=== PATIENT | male | born 1945 | race Caucasian/White ===

== ENCOUNTER 2018-10-24 06:25 | Emergency (ER) | payer MEDICARE ==
[~2018-10-24] VITALS: Ht 167.6 cm; Wt 82.0 kg
[~2018-10-24 06:25] MED LIST: AMLODIPINE5 MG PO; ASPIRIN LOW DOS81 M2 PO; BETIMOL0.5 % OP; CASODEX50 MG PO; CITRACAL200 MG PO; CLOBETASOL0.051 EX; COMBIGAN0.2 MG/0.5 OU; CRESTOR20 MG PO; CRESTOR40 MG PO; DESOWEN0.055 EX; DULCOLAX SS100 MG PO; FIBER CHOICE1.5 GM PO; FISH OIL1200 M1 PO; FLOMAX0.4 M1 PO; GLUCOSAMINE1 TA1 PO; KLOR-CON 1010 ME1 PO; LASIX 40 MG40 MG/TAB PO; LOMOTIL2.5 MG PO; LOTRISONE TOP; MEDDOSEPAK PO; METOPROL TAR25 M1 PO; METOPROLOL SUCC50 MG PO; METOPROLOL TART50 MG PO; MULTI VIT PO; PERCOCET 10/31 COMBO PO; PLAVIX75 MG PO; PREDNISONE20 MG PO; XALATAN0.005 % OP; ZETIA10 MG PO
[2018-10-24 06:50] LABS: HEMATOCRIT 30.8 % (39.0-50.0); HEMOGLOBIN 10.4 g/dl (14.0-18.0); MEAN CELL VOLUME 93.6 fL CALC (80.0-100.0); MEAN CORPUSCULAR HGB 31.6 pG CALC (26.0-32.0); MEAN CORPUSCULAR HGB CONC 33.8 g/L CALC (32.0-36.0); NEUT# 2.64 thou/uL (1.82-7.42); RED BLOOD COUNT 3.29 mill/uL (4.70-6.10); RED CELL DISTRI WIDTH 13.6 % (11.5-15.5)
[2018-10-24 07:08] LABS: ALKALINE PHOSPHATASE 50 u/l (38-126); ANION GAP 13 (6-22 (CALC)); BILIRUBIN, TOTAL 0.6 mg/dL (0.0-1.4); BUN 30 mg/dL (8-23); BUN/CREATININE RATIO 42 (12-20 (CALC)); CARBON DIOXIDE 24 mmol/l (22-30); CHLORIDE 107 mmol/l (95-108); CREATININE 0.7 mg/dL (0.7-1.3); GFR > 60 ML/MIN (>=60 (CALC)); GFR FOR AFR.AMER. > 60 ML/MIN (>=60 (CALC)); POTASSIUM 4.8 mmol/l (3.5-5.1); SGOT/AST 41 u/l (19-48); SODIUM 139 mmol/l (137-146); TOTAL PROTEIN 7.3 g/dL (6.3-8.2)
[2018-10-24 07:20] LABS: MYOGLOBIN 131 ng/mL (0 - 121)
[2018-10-24] MEDS ORDERED: AMLODIPINE5 MG PO (08:02)
[2018-10-24] MEDS ORDERED: SERTRALINE50 MG PO (08:02)
[2018-10-24] MEDS ORDERED: CRESTOR40 MG PO (08:02)
[2018-10-24] MEDS ORDERED: CARVEDILOL6.25 MG PO (08:03)
[2018-10-24 08:50] VITALS: BP 172/83
== END 2018-10-24 08:50 | disposition short-term general hospital (02) ==
LOC: ED 06:25
PROVIDERS: Family Medicine
DX: I63.9 Cerebral infarction, unspecified (principal); R53.1 Weakness; M41.9 Scoliosis, unspecified; I10 Essential (primary) hypertension

== ENCOUNTER → 2019-01-09 | Outpatient (REF) | payer MEDICARE ==
[~2019-01-09] MED LIST changes: +CARVEDILOL6.25 MG PO; +SERTRALINE50 MG PO
[2019-01-09 09:05] LABS: HEMATOCRIT 31.1 % (39.0-50.0); HEMOGLOBIN 9.8 g/dl (14.0-18.0); IMMATURE GRANULOCYTES 0.2 % (0.0-5.0); MEAN CELL VOLUME 93.4 fL CALC (80.0-100.0); MEAN CORPUSCULAR HGB 29.4 pG CALC (26.0-32.0); MEAN CORPUSCULAR HGB CONC 31.5 g/L CALC (32.0-36.0); NEUT# 2.58 thou/uL (1.82-7.42); RED BLOOD COUNT 3.33 mill/uL (4.70-6.10); RED CELL DISTRI WIDTH 15.5 % (11.5-15.5)
[2019-01-09 09:19] LABS: ALBUMIN 4.1 g/dL (3.2-5.0); ALKALINE PHOSPHATASE 72 u/l (38-126); ANION GAP 15 (6-22 (CALC)); BILIRUBIN, TOTAL 0.4 mg/dL (0.0-1.4); BUN 30 mg/dL (8-23); BUN/CREATININE RATIO 31 (12-20 (CALC)); CALCULATED LDLCHOLESTEROL 102 mg/dL (62-129 (CALC)); CARBON DIOXIDE 25 mmol/l (22-30); CHLORIDE 105 mmol/l (95-108); CHOLESTEROL HDL RATIO 4.4 (<4.4 (CALC)); GFR > 60 ML/MIN (>=60 (CALC)); GFR FOR AFR.AMER. > 60 ML/MIN (>=60 (CALC)); HDL CHOLESTEROL 37 mg/dL (>=40); POTASSIUM 4.4 mmol/l (3.5-5.1); SGOT/AST 24 u/l (19-48); SODIUM 141 mmol/l (137-146); TOTAL CHOLESTEROL 163 mg/dl (0-199); TOTAL PROTEIN 7.4 g/dL (6.3-8.2); TOTAL TRIGLYCERIDES 122 mg/dl (30-149); VLDL CHOLESTROL 24 mg/dl (0-38 (CALC))
== END | disposition home or self-care (01) ==
LOC: LAB 08:15
PROVIDERS: ATTEND Internal Medicine Geriatric Medicine
DX: I10 Essential (primary) hypertension (principal); E78.00 Pure hypercholesterolemia, unspecified; Z85.46 Personal history of malignant neoplasm of prostate

== ENCOUNTER 2019-03-19 19:02 | Emergency (ER) | payer MEDICARE ==
[~2019-03-19] VITALS: Ht 167.6 cm; Wt 79.0 kg
[2019-03-19] MEDS ORDERED: AMOXICILLIN500 MG PO (21:19)
[2019-03-19 21:38] VITALS: BP 132/68
== END 2019-03-19 21:38 | disposition home or self-care (01) ==
LOC: ED 19:02
PROC: 0CQ0XZZ Repair Upper Lip, External Approach (ICD-10-PCS; principal; 2019-03-19)
DX: S01.511A Laceration without foreign body of lip, initial encounter (principal); S00.81XA Abrasion of other part of head, initial encounter; R22.0 Localized swelling, mass and lump, head; W01.198A Fall on same level from slipping, tripping and stumbling with subsequent striking against other object, initial encounter; Y92.009 Unspecified place in unspecified non-institutional (private) residence as the place of occurrence of the external cause

== ENCOUNTER 2020-12-25 08:12 | Emergency (ER) | payer MEDICARE ==
[~2020-12-25] VITALS: Ht 175.3 cm; Wt 90.1 kg
[~2020-12-25 08:12] MED LIST changes: +AMOXICILLIN500 MG PO
[2020-12-25] MEDS ORDERED: SPIRONOLACT25 MG PO (08:49)
[2020-12-25] MEDS ORDERED: PLAVIX75 MG PO (08:49)
[2020-12-25] MEDS ORDERED: ENTRESTO 24-261 TAB PO (08:50)
[2020-12-25] MEDS ORDERED: SINEMET 25/1001 TA2 PO (08:51)
[2020-12-25] MEDS ORDERED: EZETIMIBE10 MG PO (08:52)
[2020-12-25 09:08] LABS: HEMATOCRIT 32.4 % (39.0-50.0); HEMOGLOBIN 10.5 g/dl (14.0-18.0); IMMATURE GRANULOCYTES 0.2 % (0.0-5.0); MEAN CELL VOLUME 97.6 fL CALC (80.0-100.0); MEAN CORPUSCULAR HGB 31.6 pG CALC (26.0-32.0); MEAN CORPUSCULAR HGB CONC 32.4 g/dL CAL (32.0-36.0); NEUT# 3.52 thou/uL (1.82-7.42); RED BLOOD COUNT 3.32 mill/uL (4.70-6.10); RED CELL DISTRI WIDTH 13.4 % (11.5-15.5)
[2020-12-25 09:29] LABS: ALBUMIN 4.6 g/dL (3.2-5.0); ALKALINE PHOSPHATASE 67 u/l (38-126); ANION GAP 16 (6-22 (CALC)); BUN 30 mg/dL (8-23); BUN/CREATININE RATIO 27 (12-20 (CALC)); CARBON DIOXIDE 22 mmol/l (22-30); CHLORIDE 104 mmol/l (95-108); CREATININE 1.1 mg/dL (0.7-1.3); GFR > 60 ML/MIN (>=60 (CALC)); GFR FOR AFR.AMER. > 60 ML/MIN (>=60 (CALC)); LIPASE 67 u/l (23-300); POTASSIUM 4.3 mmol/l (3.5-5.1); SGOT/AST 26 u/l (19-48); SODIUM 138 mmol/l (137-146); TOTAL PROTEIN 7.8 g/dL (6.3-8.2)
[2020-12-25 09:32] LABS: BILIRUBIN, TOTAL 0.6 mg/dL (0.0-1.4)
[2020-12-25 10:44] LABS: URINE BILIRUBIN - DIPSTICK NEGATIVE (NEGATIVE); URINE BLOOD DIPSTICK NEGATIVE (NEGATIVE); URINE COLOR YELLOW; URINE GLUCOSE - DIPSTICK NEGATIVE (NEGATIVE); URINE KETONE NEGATIVE (NEGATIVE); URINE LEUK ESTERASE NEGATIVE (NEGATIVE); URINE NITRITE - DIPSTICK NEGATIVE (Negative); URINE PROTEIN - DIPSTICK NEGATIVE (NEG-TRACE); URINE SPECIFIC GRAVITY 1.025; URINE UROBILINOGEN - DIPSTICK 0.2 E.U./dL (0.2)
[2020-12-25 16:19] VITALS: BP 140/70
== END 2020-12-25 16:19 | disposition short-term general hospital (02) ==
LOC: ED 08:12
PROVIDERS: Emergency Medicine
DX: R10.30 Lower abdominal pain, unspecified (principal); K80.20 Calculus of gallbladder without cholecystitis without obstruction; I10 Essential (primary) hypertension; M41.9 Scoliosis, unspecified; Z95.1 Presence of aortocoronary bypass graft
CPT/HCPCS: Q9967

== ENCOUNTER 2021-04-03 17:58 | Observation (INO) | payer MEDICARE ==
[~2021-04-03] VITALS: Ht 170.2 cm; Wt 88.2 kg
[~2021-04-03 17:58] MED LIST changes: +ENTRESTO 24-261 TAB PO; +EZETIMIBE10 MG PO; +SINEMET 25/1001 TA2 PO; +SPIRONOLACT25 MG PO
--- NOTE | 2021-04-03 18:00 | NUR ---
TO ROOM VIA EMS
[2021-04-03] MEDS ORDERED: AMITRIPTYLIN25 MG PO (18:32)
--- NOTE | 2021-04-03 18:45 | NUR ---
RECEIVED REPORT FROM RN DAY SHIFT.
--- NOTE | 2021-04-03 19:02 | NUR ---
IN ROOM INTRODUCED SELF TO PT. NO C/O.
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
[2021-04-03 19:25] LABS: HEMATOCRIT 27.3 % (39.0-50.0); IMMATURE GRANULOCYTES 0.5 % (0.0-5.0); MEAN CELL VOLUME 99.6 fL CALC (80.0-100.0); MEAN CORPUSCULAR HGB CONC 31.1 g/dL CAL (32.0-36.0); NEUT# 4.91 thou/uL (1.82-7.42); RED BLOOD COUNT 2.74 mill/uL (4.70-6.10); RED CELL DISTRI WIDTH 13.3 % (11.5-15.5)
[2021-04-03 19:27] LABS: HEMOGLOBIN 8.5 g/dl (14.0-18.0)
[2021-04-03 19:28] LABS: URINE BILIRUBIN - DIPSTICK NEGATIVE (NEGATIVE); URINE BLOOD DIPSTICK NEGATIVE (NEGATIVE); URINE COLOR YELLOW; URINE GLUCOSE - DIPSTICK NEGATIVE (NEGATIVE); URINE KETONE NEGATIVE (NEGATIVE); URINE LEUK ESTERASE NEGATIVE (NEGATIVE); URINE PROTEIN - DIPSTICK NEGATIVE (NEG-TRACE); URINE UROBILINOGEN - DIPSTICK 0.2 E.U./dL (0.2)
[2021-04-03 19:30] LABS: URINE NITRITE - DIPSTICK NEGATIVE (Negative)
[2021-04-03 19:36] LABS: MAGNESIUM 2.2 mg/dL (1.6-2.3)
[2021-04-03 19:37] LABS: ALKALINE PHOSPHATASE 95 u/l (38-126); ANION GAP 12 (6-22 (CALC)); BILIRUBIN, TOTAL 0.4 mg/dL (0.0-1.4); BUN 39 mg/dL (8-23); BUN/CREATININE RATIO 33 (12-20 (CALC)); CARBON DIOXIDE 23 mmol/l (22-30); CHLORIDE 102 mmol/l (95-108); CREATININE 1.2 mg/dL (0.7-1.3); GFR 59 ML/MIN (>=60 (CALC)); GFR FOR AFR.AMER. > 60 ML/MIN (>=60 (CALC)); LIPASE 30 u/l (23-300); SODIUM 132 mmol/l (137-146); TOTAL PROTEIN 7.4 g/dL (6.3-8.2)
[2021-04-03 19:41] LABS: SGOT/AST 155 u/l (19-48)
--- NOTE | 2021-04-03 20:20 | NUR ---
PT. RESTING ON STRETCHER, NO C/O AT THIS TIME. V/S STABLE.
--- NOTE | 2021-04-03 21:03 | NUR ---
IN ROOM TO DISCUSS CLINICAL FINDINGS WITH PT. AND VERBALIZED UNDERSTANDING.
--- NOTE | 2021-04-03 21:50 | NUR ---
Admission Note Report Given to: DYLAN BARNES Transported by: Wheelchair X Stretcher Transported with: X Nurse Transporter X Patent IV O2 Budget Specialist Location: ICU X MS[facility]
--- NOTE | 2021-04-03 22:08 | NUR ---
PT. TAKEN TO MS FLOOR VIA STRETCHER, NO C/O AT THIS TIME.
--- NOTE | 2021-04-03 22:10 | NUR ---
PT RECEIVED FROM ED TO ROOM 261. ARRIVES VIA STRETCHER ACCOMPANIED BY RAFFI BARNES. PT TRANSFERED TO BED. GAIT UNSTEADY. PT DENIES PAIN AT THIS TIME. ORIENTED TO UNIT, ROOM, CALL RAY, LIGHTS, TV. ICE WATER PROVIDED. CALL RAY WITHIN REACH. AGREES TO CALL PRN.
[2021-04-03 22:15] VITALS: BP 125/83
--- NOTE | 2021-04-03 23:00 | NUR ---
PHYSICAL ASSESMENT COMPLETE. PT CURRENTLY DENIES PAIN OR DISCOMFORT. SCHEDULED MEDICATIONS AND PRN MEDICATION ADMINISTERED, SEE E-MAR. PT A&O TO SELF BUT HAS MOMENTS OF CONFUSION. PT DENIES [place] NEEDS AT THIS TIME. PLAN OF CARE REVIEWED, PT DENIES QUESTIONS. ITEMS WITHIN REACH, BED LOCKED IN LOW POSITION W/ BEDRAILS UP X2. BED ALARM ACTIVATED. CALL RAY WITHIN REACH, AGREES TO CALL PRN.
--- NOTE | 2021-04-04 | NUR ---
PT LAYING IN BED WITH EYES CLOSED, APPEARS TO BE SLEEPING, APPEARS COMFORTABLE AND IN NO DISTRESS. RESPIRATIONS REGULAR AND UNLABORED. ITEMS REMAIN WITHIN REACH, CALL RAY REMAINS WITHIN REACH. BED REMAINS LOCKED AND IN LOW POSITION WITH BEDRAILS UP X2. WILL CONTINUE TO MONITOR.
--- NOTE | 2021-04-04 03:50 | NUR ---
PT CHANGED AND CLEANED FOR INCONTIENCE OF STOOL AND URINE. NO SIGNS OF DISTRESS NOTED, RESP EVEN AND UNLABORED. PT VOICES NO NEEDS OR COMPLAINTS AT THIS TIME. CALL LIGHT IN REACH, CONTINUE TO MONITOR.
[2021-04-04 04:00] VITALS: BP 133/81
--- NOTE | 2021-04-04 07:00 | NUR ---
SHIFT CHANGE REPORT, PT AWAKE AND ALERT, ORIENTED TO PERSON AND PLACE, DENIES PAIN AT THIS TIME, CALL RAY IN REACH AND BED LOCKED IN LOWEST POSITION
[2021-04-04 07:34] VITALS: BP 126/79
--- NOTE | 2021-04-04 11:40 | NUR ---
SITTING UP IN BED, MEAL SERVED, ALL NEEDS ADDRESSED.
[2021-04-04 14:30] VITALS: BP 122/78
--- NOTE | 2021-04-04 15:57 | NUR ---
RESTING N BED, NO NEW COMPLAINS OR CHANGES, ALL NEEDS MET/ADDRESSED.
[2021-04-04 19:00] VITALS: BP 119/76
--- NOTE | 2021-04-04 20:04 | NUR ---
PATIENT RESTING IN BED AT THIS TIME WITH HOB ELEVATED. PATIENT IS AWAKE ALERT AND ORIENTEDX3. IV SITE TO RAC INTACT WITH IVF NS PATENT AND INFUSING AT 100CC/HR. SITE IS HEALTHY AT THIS TIME. PATIENT TURNED AND REPOSITIONED. MEDICATED WITH MOM 30CC FROR CONSTIPATION. ABD IS SOFT WITH ACTIVE BS. LUNGS ARE CLEAR. TRACE EDEMA NOTED TO BLE-C/O SOME PAIN TO RIGHT ANKLE AREA. BLE ELEVATED ON PILLOWS. HEART RATE IS REGULAR. HS MEDS WERE ALSO GIVEN. TAKING PO FLUIDS WITHOUT ANY DIFFICULTY. SAFETY PRECAUTIONS REINFORCED. BED ALARM IN PLACE FOR PATIENT SAFETY. CALL LIGHT IN REACH. WILL CONT TO MONITOR.
--- NOTE | 2021-04-04 23:35 | NUR ---
PATIENT RESTING IN BED WITH EYES CLOSED. RESPS ARE EVEN AND UNLABORED. IVF NS PATENT AND INFUSING VIA RAC SITE AT 100CC/HR. BED ALARM IN PL [place] FOR PATIENT SAFETY. CALL LIGHT IN REACH. WILL CONT TO MONITOR.
[2021-04-05 04:00] VITALS: BP 125/78
--- NOTE | 2021-04-05 04:04 | NUR ---
PATIENT APPEARS SLEEPING AT THIS TIME WITH HIS EYES CLOSED. RESPS ARE EVEN AND UNLABORED. BED ALARM INPLACE FOR PATIENT SAFETY. CALL LIGHT IN REACH. WILL CONT TO MONITOR.
--- NOTE | 2021-04-05 04:45 | NUR ---
PATIENT INCONT OF MODERATE AMT OF SOFT BROWN STOOL AND MODERATE AMT OF URINE, PERICARE WAS DONE WITH SOAP AND WATER. TURNED AND REPOSITIONED. CALL LIGHT IN REACH. WILL CONT TO MONITOR.
--- NOTE | 2021-04-05 05:12 | NUR ---
PATIENT RESTING IN BED. NEW IV STARTED TO LAC-GOOD BLOOD RETURN. IVF NS PATENT AND INFUSING AT 100CC/HR. EMS SITE TO [facility] D/C'ED WITH CATH INTACT. BED ALARM IN PLACE FOR PATIENT SAFETY. CALL LIGHT IN REACH. WILL CONT TO MONITOR.
[2021-04-05 06:07] LABS: HEMATOCRIT 25.7 % (39.0-50.0); HEMOGLOBIN 8.1 g/dl (14.0-18.0); MEAN CORPUSCULAR HGB 30.6 pG CALC (26.0-32.0); MEAN CORPUSCULAR HGB CONC 31.5 g/dL CAL (32.0-36.0); RED BLOOD COUNT 2.65 mill/uL (4.70-6.10); RED CELL DISTRI WIDTH 13.2 % (11.5-15.5)
[2021-04-05 06:26] LABS: ANION GAP 12 (6-22 (CALC)); BUN 23 mg/dL (8-23); BUN/CREATININE RATIO 24 (12-20 (CALC)); CARBON DIOXIDE 21 mmol/l (22-30); CHLORIDE 107 mmol/l (95-108); GFR > 60 ML/MIN (>=60 (CALC)); GFR FOR AFR.AMER. > 60 ML/MIN (>=60 (CALC)); POTASSIUM 4.8 mmol/l (3.5-5.1); SODIUM 135 mmol/l (137-146)
[2021-04-05 07:20] VITALS: BP 134/86
--- NOTE | 2021-04-05 08:10 | NUR ---
SHIFT CHANGE REPORT, PT SLEELPING SOUNDLY IN SUPINE POSITION, AWAKENED BY MODERATELY LOUD VERBAL STIMULI, NO C/O DISCOMFORT, IVF INFUSING, CALL RAY IN REACH AND BED LOCKED IN LOWEST POSITION.
--- NOTE | 2021-04-05 11:48 | NUR ---
RESTING IN BED, PHYSICAL THERAPIST WORKING WITH PT AT THIS TIME, ALL NEEDS ADDRESSED.
[2021-04-05] MEDS ORDERED: FERROUS SULF325 M2 PO (13:44)
[2021-04-05] MEDS ORDERED: MIRALAX17 GM/SCOO PO (13:48)
[2021-04-05 15:22] VITALS: BP 145/83
--- NOTE | 2021-04-05 15:30 | NUR ---
REPORT GIV[facility]IA PHONE TO [facility], PT EXPECTED TO LEAVE @ 1600.
--- NOTE | 2021-04-05 15:51 | NUR ---
Patient was seen and treated at bedside. Patient identity was verified via full name and . Patient denies fer and discomfort with all exercise activities. Patient was alert and oriented throughout PT visit. Patient tolerated supine AROMES on B UE/LE. Assisted in getting up to sit on edge of bed. Practiced trunk stabilization and weight shifting in sitting to facilitate sitting balance. Attempted sit to stand and scooting activities to adjust position on bed. Patient was unable to completely lift butt off the bed to stand upright, but able to scoot up towards head of bed. Patient tolerated upright sitting and AROMES on edge of bed for about 15 minutes. Patient education on pressur relief measures, proper bed positioning, fall prevention and HEP provided. Patient assisted back into bed, left comfortably in semi-guo position with call button at bedside.
--- NOTE | 2021-04-05 16:55 | NUR ---
Discharge instructions given. Patient verbalizes understanding of same. Discharged in stable condition via Medical Transport to [facility] with *Other. All belongings sent with pt.
== END 2021-04-05 16:15 ==
LOC: ED 17:58 → ED-I 21:20 → ED 21:31 → MS2 21:32
PROVIDERS: Nurse Practitioner; ADMIT Internal Medicine; ATTEND Internal Medicine
DX: K56.41 Fecal impaction (principal); E86.0 Dehydration; D50.9 Iron deficiency anemia, unspecified; I10 Essential (primary) hypertension; I25.10 Atherosclerotic heart disease of native coronary artery without angina pectoris; E78.5 Hyperlipidemia, unspecified; G20 Parkinson's disease; M41.9 Scoliosis, unspecified; Z95.1 Presence of aortocoronary bypass graft; Z20.822 Contact with and (suspected) exposure to COVID-19
CPT/HCPCS: G0378; J1756

== ENCOUNTER 2022-05-01 08:26 | Emergency (ER) | payer MEDICARE ==
[~2022-05-01] VITALS: Ht 170.2 cm; Wt 86.0 kg
[~2022-05-01 08:26] MED LIST changes: +AMITRIPTYLIN25 MG PO; +FERROUS SULF325 M2 PO; +MIRALAX17 GM/SCOO PO
[2022-05-01 09:17] LABS: URINE BILIRUBIN - DIPSTICK NEGATIVE (NEGATIVE); URINE BLOOD DIPSTICK NEGATIVE (NEGATIVE); URINE COLOR YELLOW; URINE GLUCOSE - DIPSTICK NEGATIVE (NEGATIVE); URINE KETONE NEGATIVE (NEGATIVE); URINE LEUK ESTERASE NEGATIVE (NEGATIVE); URINE PROTEIN - DIPSTICK NEGATIVE (NEG-TRACE); URINE SPECIFIC GRAVITY 1.015; URINE UROBILINOGEN - DIPSTICK 0.2 E.U./dL (0.2)
[2022-05-01 09:22] LABS: URINE NITRITE - DIPSTICK NEGATIVE (Negative)
[2022-05-01 09:23] LABS: ALKALINE PHOSPHATASE 70 u/l (38-126); AMYLASE 67 u/l (30-110); BILIRUBIN, TOTAL 0.4 mg/dL (0.0-1.4); BUN 40 mg/dL (8-23); BUN/CREATININE RATIO 30 (12-20 (CALC)); CHLORIDE 106 mmol/l (95-108); CREATININE 1.4 mg/dL (0.7-1.3); GFR FOR AFR.AMER. 59 ML/MIN (>=60 (CALC)); GFR OTHER RACES 49 ML/MIN (>=60 (CALC)); LIPASE 117 u/l (23-300); POTASSIUM 4.1 mmol/l (3.5-5.1); SODIUM 139 mmol/l (137-146)
[2022-05-01 09:25] LABS: ANION GAP 10 (6-22 (CALC)); CARBON DIOXIDE 27 mmol/l (22-30); HEMATOCRIT 30.1 % (39.0-50.0); HEMOGLOBIN 9.6 g/dl (14.0-18.0); MEAN CORPUSCULAR HGB 31.6 pG CALC (26.0-32.0); MEAN CORPUSCULAR HGB CONC 31.9 g/dL CAL (32.0-36.0); NEUT# 2.33 thou/uL (1.82-7.42); RED BLOOD COUNT 3.04 mill/uL (4.70-6.10); RED CELL DISTRI WIDTH 14.4 % (11.5-15.5); SGOT/AST 28 u/l (19-48)
[2022-05-01 09:30] LABS: ACT PARTIAL THROMBO TIME 23.6 SECONDS (20.0-32.5); PROTHROMBIN TIME 10.5 SECONDS (9.0-12.5)
[2022-05-01 12:12] VITALS: BP 146/87
== END 2022-05-01 12:01 | disposition short-term general hospital (02) ==
LOC: ED 08:26
DX: R10.31 Right lower quadrant pain (principal); R10.32 Left lower quadrant pain; I71.4 Abdominal aortic aneurysm, without rupture; I10 Essential (primary) hypertension; G20 Parkinson's disease; Z95.1 Presence of aortocoronary bypass graft; Z85.46 Personal history of malignant neoplasm of prostate; Z20.822 Contact with and (suspected) exposure to COVID-19
CPT/HCPCS: Q9967

== ENCOUNTER 2023-01-29 08:07 | Observation (INO) | payer MEDICARE ==
[2023-01-29] VITALS (14 sets, daily range): BP systolic 124–146; BP diastolic 67–89
[~2023-01-29] VITALS: Ht 175.3 cm; Wt 73.7 kg
--- NOTE | 2023-01-29 08:08 | NUR ---
PATIENT TO ROOM VIA EMS FOR A FALL IN THE SHOWER AT HOME. FALL WITNESSED BY . DENIES LOC OR INJURY TO HEAD. EMS NOTES PATIENT HAS NOT HAD A BOWEL MOVEMENT IN 4 DAYS.
[2023-01-29 08:27] LABS: BASO% 0.2 % (0-3); EOS% 2.6 % (0-8); HEMATOCRIT 28.7 % (39.0-50.0); HEMOGLOBIN 9.2 g/dl (14.0-18.0); LYMPH% 12.3 % (15-41); MEAN CORPUSCULAR HGB 32.1 pG CALC (26.0-32.0); MEAN CORPUSCULAR HGB CONC 32.1 g/dL CAL (32.0-36.0); MONO% 9.3 % (2-13); NEUT# 4.94 thou/uL (1.82-7.42); NEUT% 75.6 % (42-76); RED BLOOD COUNT 2.87 mill/uL (4.70-6.10); RED CELL DISTRI WIDTH 13.9 % (11.5-15.5)
[2023-01-29 08:48] LABS: ALBUMIN 4.2 g/dL (3.2-5.0); ALKALINE PHOSPHATASE 66 u/l (38-126); ANION GAP 13 (6-22 (CALC)); BILIRUBIN, TOTAL 0.4 mg/dL (0.2-1.3); BUN 38 mg/dL (8-23); BUN/CREATININE RATIO 34 (12-20 (CALC)); CARBON DIOXIDE 24 mmol/l (22-30); CHLORIDE 106 mmol/l (95-108); CREATININE 1.1 mg/dL (0.7-1.3); GFR FOR AFR.AMER. > 60 ML/MIN (>=60 (CALC)); GFR OTHER RACES > 60 ML/MIN (>=60 (CALC)); POTASSIUM 4.3 mmol/l (3.5-5.1); SGOT/AST 32 u/l (19-48); SODIUM 139 mmol/l (137-146); TOTAL PROTEIN 7.5 g/dL (6.3-8.2)
--- NOTE | 2023-01-29 09:18 | NUR ---
pt straight cath done, urine sent to lab
--- NOTE | 2023-01-29 09:23 | NUR ---
pt sleeping, no distress, at bedside
[2023-01-29 09:46] LABS: URINE BILIRUBIN - DIPSTICK NEGATIVE (NEGATIVE); URINE BLOOD DIPSTICK NEGATIVE (NEGATIVE); URINE COLOR YELLOW; URINE GLUCOSE - DIPSTICK NEGATIVE (NEGATIVE); URINE KETONE NEGATIVE (NEGATIVE); URINE LEUK ESTERASE NEGATIVE (NEGATIVE); URINE PROTEIN - DIPSTICK NEGATIVE (NEG-TRACE); URINE SPECIFIC GRAVITY 1.015; URINE UROBILINOGEN - DIPSTICK 0.2 E.U./dL (0.2)
[2023-01-29 09:47] LABS: URINE NITRITE - DIPSTICK NEGATIVE (Negative)
--- NOTE | 2023-01-29 10:38 | NUR ---
pt sleeping, at bedside, pending admit
--- NOTE | 2023-01-29 12:33 | NUR ---
pt resting, no distress, at bedside. unable to verify home meds at this time, can bring med list
--- NOTE | 2023-01-29 12:58 | NUR ---
report called to [facility] nurse, all questions anwsered at this time
--- NOTE | 2023-01-29 13:35 | NUR ---
RECEIVE PATIENT FROM ER. REPORT FROM [facility] ER NURSE. PATIENT ACCOMPANIED FOR MRS. MATA . PATIENT STABLE AT THIS TIME.PATIENT AND IS EDUCATED ABOUD ADMISSION, NURSING PLAN AND MEDICATIONS FOR TODAY. PATIENT REFER UNDERSTAND. SAFETY AND FALL PRECAUTIONS IN PLACE. CALL LIGHT WITHIN IN REACH.
--- NOTE | 2023-01-29 13:43 | NUR ---
pt transported to 260
[2023-01-29] MEDS ORDERED: SINEQUAN25 MG PO (13:58)
[2023-01-29] MEDS ORDERED: BRIMONIDINE0.15 % OU (14:06)
[2023-01-29] MEDS ORDERED: LIPITOR80 M1 PO (14:09)
[2023-01-29] MEDS ORDERED: CARB/LEVO SR PO (16:01)
[2023-01-29] MEDS ORDERED: CARB/LEVO1 TA3 PO (16:01)
[2023-01-29] MEDS ORDERED: FUROSEMIDE20 MG PO (16:02)
[2023-01-29] MEDS ORDERED: ENTRESTO 24-261 TAB PO (16:04)
--- NOTE | 2023-01-29 20:00 | NUR ---
RECEIVED REPORT FROM NURSE YOSHIPATIENT RESTING IN BED, ALERT ORIENTED, EMS IV RAC SALINE LOCK PATENT FLUSHES WELL, ON TELEMETRY, PATIENT ON BED ALARM, REMAINS ON ISOLATION FOR FLU, CALL LIGHT IN REACH.
[2023-01-30] VITALS (7 sets, daily range): BP systolic 112–139; BP diastolic 68–80
--- NOTE | 2023-01-30 | NUR ---
PATIENT RESTING IN BED, REMAINS ON CPAP, NOT IN DISTRESS, TECH IN ROOM FOR LABS, CALL LIGHT IN REACH.
--- NOTE | 2023-01-30 | NUR ---
INCONTINENT CARE PROVIDED, PATIENT RESTING EYES CLSOED, CALL LIGHT IN REACH BED ALARM IN PLACE.
--- NOTE | 2023-01-30 05:00 | NUR ---
PATIENT RESTING IN BED EYES CLOSED, NON IN DISTRESS CALL LIGHTIN REACH, BED ALARM IN PLACE
--- NOTE | 2023-01-30 08:00 | NUR ---
PT ALERT AND ORIENTED X3.ABLE TO MAKE NEEDS KNOWN.EYES OPEN RESPIRATIONS EVEN,UNLABORED.SAFETY PREACAUTIONS IN PLACE CALL LIGHT WITHIN REACH.
--- NOTE | 2023-01-30 16:41 | NUR ---
PT RESTING WITH EYES OPEN.RESPIRATIONS EVEN,UNLABORED.NO C/O PAIN AT THIS TIME.ABLE TO MAKE NEEDS KNOWN.SAFETY PRECAUTIONS IN PLACE.CALL LIGHT WITHIN REACH.
--- NOTE | 2023-01-30 20:00 | NUR ---
RECEIVED REPORT FROM NURSE VAZQUEZ, PATIENT RESTING IN BED, BREATHING EVEN UNLABORED, PATIENT HAS OCCASIONAL COUGHING NOTED, NO PRODUCTIVE, REMAINS ON DROPLET PRECAUTION FOR FLU, PATIENT ALERT ORIENTED, HAS EMS SITE ON RAC G 20 PATENT FLUSHES WELLM ON TELEMETRY, ACTIVE BOWEL SOUNDS, EDEMA NOTED ON BOTH LEGS OFFLOADED, PATIENT C/O PAIN ON BUTT, PATIENT RESPOSITIONED AND TYLENOL GIVEN.CALL LIGHT IN REACH, BED ALRM INPLACE.
--- NOTE | 2023-01-30 22:05 | NUR ---
EMS SITE REMOVED NEW IV SITE REINSERTED ON RFA G 22, PATENT FLUSHES WELL.
--- NOTE | 2023-01-30 23:32 | NUR ---
PATIENT RESTING IN BED, WITH EYES CLOSED, BREATHING EVEN UNLABORED BED ALARM IN PLACE.
--- NOTE | 2023-01-30 23:58 | NUR ---
INCONTINENT OF BLADDER BM LOOSE SMALL BROWN IN COLOR, PERICARE PROVIDED.
[2023-01-31 03:55] VITALS: BP 134/76
--- NOTE | 2023-01-31 04:05 | NUR ---
incontinent care provided, bm x 1 loose, sierra care provided, patient turned to his rt side, call light in reach.
[2023-01-31 05:49] LABS: BASO% 0.3 % (0-3); EOS% 2.5 % (0-8); HEMATOCRIT 26.9 % (39.0-50.0); HEMOGLOBIN 8.6 g/dl (14.0-18.0); LYMPH% 35.2 % (15-41); MONO% 12.1 % (2-13); NEUT# 1.57 thou/uL (1.82-7.42); NEUT% 49.9 % (42-76); RED BLOOD COUNT 2.69 mill/uL (4.70-6.10); RED CELL DISTRI WIDTH 13.7 % (11.5-15.5)
[2023-01-31 05:58] LABS: ALBUMIN 3.6 g/dL (3.2-5.0); ALKALINE PHOSPHATASE 54 u/l (38-126); BUN 25 mg/dL (8-23); BUN/CREATININE RATIO 24 (12-20 (CALC)); CARBON DIOXIDE 24 mmol/l (22-30); CHLORIDE 109 mmol/l (95-108); CREATININE 1.1 mg/dL (0.7-1.3); GFR FOR AFR.AMER. > 60 ML/MIN (>=60 (CALC)); GFR OTHER RACES > 60 ML/MIN (>=60 (CALC)); MAGNESIUM 2.1 mg/dL (1.6-2.3); SGOT/AST 25 u/l (19-48); SODIUM 139 mmol/l (137-146); TOTAL PROTEIN 6.7 g/dL (6.3-8.2)
[2023-01-31 06:00] LABS: ANION GAP 10 (6-22 (CALC)); POTASSIUM 4.4 mmol/l (3.5-5.1)
[2023-01-31 06:05] LABS: BILIRUBIN, TOTAL 0.2 mg/dL (0.2-1.3)
[2023-01-31 06:41] VITALS: BP 137/80
--- NOTE | 2023-01-31 08:57 | NUR ---
PT ALERT AND ORIENTED X3.ABLE TO MAKE NEEDS KNOWN.NO C/O PAIN AT THIS TIME.PT TRANSFERRED TO RECLINER WITHOUT INCIDENT.PT IV 22G RFA INFUSING AZITHROMYCIN.PT RESTING IN RECLINCER RESPIRATIONS EVEN,UNLABORED.PHARMACY PENDING HOLDING TAMIFLU BECAUSE KIDNEY FUNCTION,AWAITNG DECISION FROM MD.SAFETY PRECAUTIONS IN PLACE.CALL LIGHT WITHIN REACH.
[2023-01-31 11:23] VITALS: BP 116/74
--- NOTE | 2023-01-31 12:00 | NUR ---
PT RESTING IN RECLINER WITH EYES OPEN.RESPIRATIONS EVEN,UNLABORED.ABLE TO MAKE NEEDS KNOWN.NO C/O PAIN AT THIS TIME. AND SON VISITING WITH PT AT THIS TIME.SAFETY PRECAUTIONS IN PLACE.CALL LIGHT WITHIN REACH.
[2023-01-31 15:09] VITALS: BP 113/67
--- NOTE | 2023-01-31 16:00 | NUR ---
PT RESTING IN RECLINER.ABLE TO MAKE NEEDS KNOWN.NO C/O PAIN AT THIS TIME.SAFETY PRECAUTIONS IN PLACE.CALL LIGHT WITHIN REACH.
[2023-01-31 18:56] VITALS: BP 115/66
--- NOTE | 2023-01-31 19:28 | NUR ---
PATIENT RESTING IN RECLINER IN ROOM. ALERT AND ABLE TO MAKE NEEDS KNOWN. ASSESSMENT COMPLETE. DENIES ANY PAIN. NO DISTRESS NOTED. RECLINER WHEELS LOCKED. CALL RAY IN REACH WELL BELONGINGS.
[2023-01-31 23:54] VITALS: BP 118/67
--- NOTE | 2023-02-01 00:45 | NUR ---
PATIENT RESTING IN BED. NO COMPLAINTS VOICED AT THIS TIME. BED REMAINS IN LOW POSITION. CALL RAY IN REACH.
--- NOTE | 2023-02-01 03:40 | NUR ---
PATIENT SITTING IN RECLINER PER REQUEST. CHAIR ALARM PRESENT DUE TO PATIENT TRYING TO STAND ON HIS OWN WITHOUT ASKING FOR HELP. NO COMPLAINTS OF PAIN. NO DISTRESS NOTED.
[2023-02-01 04:19] VITALS: BP 137/64
[2023-02-01 05:30] LABS: BASO% 0.5 % (0-3); EOS% 4.5 % (0-8); HEMATOCRIT 29.7 % (39.0-50.0); HEMOGLOBIN 9.5 g/dl (14.0-18.0); LYMPH% 25.1 % (15-41); MEAN CELL VOLUME 100.3 fL CALC (80.0-100.0); MEAN CORPUSCULAR HGB 32.1 pG CALC (26.0-32.0); MONO% 14.5 % (2-13); NEUT# 2.45 thou/uL (1.82-7.42); NEUT% 55.4 % (42-76); RED BLOOD COUNT 2.96 mill/uL (4.70-6.10); RED CELL DISTRI WIDTH 13.9 % (11.5-15.5)
[2023-02-01 05:40] LABS: ALBUMIN 3.8 g/dL (3.2-5.0); ALKALINE PHOSPHATASE 59 u/l (38-126); ANION GAP 13 (6-22 (CALC)); BUN 26 mg/dL (8-23); BUN/CREATININE RATIO 33 (12-20 (CALC)); CARBON DIOXIDE 23 mmol/l (22-30); CHLORIDE 107 mmol/l (95-108); CREATININE 0.8 mg/dL (0.7-1.3); GFR FOR AFR.AMER. > 60 ML/MIN (>=60 (CALC)); GFR OTHER RACES > 60 ML/MIN (>=60 (CALC)); MAGNESIUM 2.1 mg/dL (1.6-2.3); POTASSIUM 4.4 mmol/l (3.5-5.1); SGOT/AST 34 u/l (19-48); SODIUM 139 mmol/l (137-146)
[2023-02-01 05:42] LABS: BILIRUBIN, TOTAL 0.3 mg/dL (0.2-1.3)
[2023-02-01 06:37] VITALS: BP 140/78
--- NOTE | 2023-02-01 08:00 | NUR ---
PT SITTING UP IN CHAIR AT BEDSIDE EATING BREAKFAST. PT IS ALERT AND ORIENTED X 2, REORIENTED TO TIME. PT HAS NO C/O PAIN AT THIS TIME. TELE ON WITH ALL LEADS ATTACHED. PT HAS IV TO RFA INTACT AND CLEAN WITH NS @ 100 ML/HR. PT HAS URINAL AT BEDSIDE. CHAIR ALARM ON, CALL LIGHT WITHIN REACH AND ALL SAFETY MEASURES IN PLACE.
[2023-02-01 10:20] VITALS: BP 114/68
--- NOTE | 2023-02-01 12:00 | NUR ---
PT UP IN CHAIR AT BEDSIDE EATING LUNCH. ALERT AND ORIENTED X 2, REORIENTED TO TIME. PT HAS NO C/O PAIN AT THIS TIME. PT HAS NO CHANGE IN STATUS AT THIS ITME. CALL LIGHT WITHIN REACH AND ALL SAFETY MEASURES IN PLACE AT THIS TIME.
[2023-02-01] MEDS ORDERED: TAMIFLU SUSP 6MG/ML PO (13:23)
[2023-02-01] MEDS ORDERED: AMOX/K CLAV875 M1 PO (13:25)
--- NOTE | 2023-02-01 14:46 | NUR ---
Discharge instructions given. Patient verbalizes understanding of same. Discharged in stable condition via Wheelchair to Home with staff. All belongings sent with pt.
== END 2023-02-01 14:41 | disposition home health service (06) ==
LOC: ED 08:07 → ED-I 09:40 → ED 10:01 → MS2 10:02
PROVIDERS: Family Medicine; Nurse Practitioner Family; ADMIT Internal Medicine; ATTEND Internal Medicine
DX: J10.00 Influenza due to other identified influenza virus with unspecified type of pneumonia (principal); I11.0 Hypertensive heart disease with heart failure; I50.9 Heart failure, unspecified; G20 Parkinson's disease; F02.80 Dementia in other diseases classified elsewhere, unspecified severity, without behavioral disturbance, psychotic disturbance, mood disturbance, and anxiety; I25.810 Atherosclerosis of coronary artery bypass graft(s) without angina pectoris; E78.5 Hyperlipidemia, unspecified; Z95.1 Presence of aortocoronary bypass graft; Z85.46 Personal history of malignant neoplasm of prostate; Z20.822 Contact with and (suspected) exposure to COVID-19
CPT/HCPCS: J1650